=== PATIENT | female | born 1960 | race Caucasian/White ===

== ENCOUNTER 2019-01-28 21:27 | Emergency (ER) | payer MEDICAID ==
[~2019-01-28] VITALS: Ht 152.4 cm; Wt 67.6 kg
[2019-01-28 21:31] VITALS: Ht 152.4 cm; Wt 67.6 kg
[2019-01-28 22:02] LABS: BASOPHIL % 0.2 % (0-2); PLATELET COUNT 238 x10^3mcL (130-400); RED CELL DISTRIBUTION WIDTH 13.1 % (11.5-14.5)
[2019-01-28 22:21] LABS: ALKALINE PHOSPHATASE 150 U/L (46-116); ALT/SGPT 131 U/L (14-59); BILIRUBIN TOTAL 1.51 mg/dL (0.20-1.00); CARBON DIOXIDE 24.4 mmol/L (21-32); CHLORIDE SERUM 100 mmol/L (98-107); CREATININE SERUM 0.6 mg/dL (0.6-1.0); GFR1 > 60 mL/min; GLUCOSE SERUM 151 mg/dL (74-106); LIPASE 120 IU/L (73-393); POTASSIUM SERUM 3.3 mmol/L (3.5-5.1); SODIUM SERUM 136 mmol/L (136-145); TOTAL PROTEIN, SERUM 8.6 g/dL (6.4-8.2)
[2019-01-28 23:18] LABS: AST/SGOT 200 U/L (15-37)
[2019-01-28 23:29] LABS: UA SPECIFIC GRAVITY <=1.005 (1.005-1.035); microscopic required? YES; urine erythrocyte TRACE (NEGATIVE)
[2019-01-29 01:47] VITALS: BP 110/72
== END 2019-01-29 02:03 | disposition home or self-care (01) ==
LOC: ED 21:27
PROVIDERS: Emergency Medicine
DX: K81.0 Acute cholecystitis (principal); K76.0 Fatty (change of) liver, not elsewhere classified; I10 Essential (primary) hypertension
CPT/HCPCS: J1885; J2405; J7030; Q0092